=== PATIENT | female | born 1955 | race African-American/Black ===

== ENCOUNTER 2022-07-19 04:11 | Day surgery (SDC) | payer OTHER ==
[2022-07-18 09:47] VITALS: BMI 39.1
[2022-07-19] MEDS ORDERED: BUPIVACAINE HCL/PF 0.5% (5MG/ML) 10 ML VIAL ONE (07:23)
[2022-07-19] MEDS ORDERED: LIDOCAINE 1%/EPI 1:100000 (20 ML MULTI DOSE VIAL) ONE (07:24)
[2022-07-19] MEDS ORDERED: MICROFIBRILLAR COLLAGEN (AVITENE) 1 EACH POWD.PACK TP ONE (07:45)
[2022-07-19] MEDS ORDERED: SUCCINYLCHOLINE CHLORIDE 200 MG/10 ML SYRINGE ONE (09:58)
[2022-07-19] MEDS ORDERED: PROPOFOL 60 ML ONE ×2 (09:58→10:55)
[2022-07-19] MEDS ORDERED: MIDAZOLAM HCL 2 MG/2 ML SINGLE DOSE VIAL ONE (09:58)
[2022-07-19] MEDS ORDERED: ONDANSETRON 4 MG/2 ML VIAL ONE (09:58)
[2022-07-19] MEDS ORDERED: DEXAMETHASONE SOD PHOSPHATE 4 MG/1 ML VIAL ONE (09:58)
[2022-07-19] MEDS ORDERED: HYDROmorphone HCl 2 MG/ML VIAL ONE (10:04)
[2022-07-19] MEDS ORDERED: KETAMINE HCL 200 MG/20 ML VIAL ONE (10:11)
[2022-07-19] MEDS ORDERED: ceFAZolin SODIUM 1 GM VIAL ONE (10:48)
[2022-07-19] MEDS ORDERED: ceFAZolin 2 GRAM PREMIX BAG IVPB ONE (10:51)
[2022-07-19] MEDS ORDERED: BUPIVACAINE HCL/PF 0.5% (5 MG/ML) 30 ML VIAL IJ ONE (11:01)
[2022-07-19] MEDS ORDERED: LACTATED RINGERS SOLUTION 1,000 ML IV SCH ×2 (12:00→12:15)
[2022-07-19 16:07] VITALS: RESP 20; TEMP 97.8
[2022-07-19 17:25] VITALS: BP 150/70; PULSE 80
== END 2022-07-19 17:00 | disposition home or self-care (01) ==
LOC: JASU-SURG 04:11
PROVIDERS: ATTEND Surgery
PROC: 0GBR0ZZ Excision of Parathyroid Gland, Open Approach (ICD-10-PCS; 2022-07-19)
PROC: 0GTG0ZZ Resection of Left Thyroid Gland Lobe, Open Approach (ICD-10-PCS; principal; 2022-07-19 10:00)
DX: C73 Malignant neoplasm of thyroid gland (principal); E06.3 Autoimmune thyroiditis; D35.1 Benign neoplasm of parathyroid gland; E05.20 Thyrotoxicosis with toxic multinodular goiter without thyrotoxic crisis or storm
CPT/HCPCS: 82962; 88305-TC; 88307-TC; 94760